=== PATIENT | male | born 1960 | race Caucasian/White ===

== ENCOUNTER 2022-05-13 05:34 | Day surgery (SDC) | payer SELFPAY, OTHER ==
[2022-05-09 08:53] LABS: Hematocrit 42.7 % (40-54); Hemoglobin 14.5 g/dL (13.0-16.5); Mean Corpuscular Hgb 30.7 pg (27.0-32.0); Mean Corpuscular Volume 90.3 fL (80-94); Mean Platelet Vol. 9.7 fl (6.2-12.0); Platelet Count 185 K/mm3 (150-450); RBC Distribution Width CV 12.7 % (11.6-14.6); RBC Distribution Width SD 42.2 fl (35.1-43.9); Red Blood Count 4.73 M/mm3 (4.6-6.2)
[2022-05-09 09:20] LABS: Anion Gap 5 (5-15); BUN 15 mg/dL (7-18); BUN/Creat Ratio 17.1 RATIO (10-20); Calcium,Total 8.6 mg/dL (8.5-10.1); Chloride 104 mmol/L (98-107); Creatinine, Serum 0.88 mg/dL (0.70-1.30); EST Glomerular Filtration Rate 94 mL/min (>60); Est Glom Filt Rate - Afr Amer 114 mL/min (>60); Glucose 101 mg/dL (74-106); Potassium 3.7 mmol/L (3.5-5.1); Sodium Level 138 mmol/L (136-145)
[2022-05-13] VITALS (10 sets, daily range): BP systolic 102–137; BP diastolic 68–95; PULSE 48–79; RESP 14–18; TEMP 35.9–36.4; O2SAT 93–100; BMI 30.7
--- NOTE | 2022-05-13 | GALL_PTH ---
PATIENT: LIGIA URBAN LOC: [facility] [place][id number] AGE/SX: 61/M ROOM: RE05/13/[address]: Dr. Tr Kong MD : 1960 BED: DIS: 05/13/2022 SPEC #: [id number] RECD: 05/13/22 13:28 STATUS: DESTINI REChrista #: [id number] EVA: 05/13/22 00:[address]: Tr Kong DEPT: SURGICAL PATHOLOGY RECD BY: Jd Moses ENTERED: 05/13/22 13:28 SP TYPE: BRYCE SAGASTUME DR: Dr. Yael Rosenthal MD Tissues: Gallbladder, NOS Procedures: Surgery Specimen Level III HEADER OPERATION: Laparoscopic cholecystectomy with IOC PRE-OP DIAGNOSIS: Cholelithiasis with chronic cholecystitis TISSUE SUBMITTED: Gallbladder MICROSCOPIC DIAGNOSIS Gallbladder, cholecystectomy: Chronic cholecystitis. AM:piotr 05/14/2022 MICROSCOPIC DESCRIPTION Slides are reviewed. GROSS DESCRIPTION Received is one container labeled with the patient's name and designated gallbladder. The specimen consists of a gallbladder measuring 8.5 x 3 x 2.5 cm. The external surface is smooth and glistening. Focally, it is granular, hemorrhagic and contains cautery artifact. The lumen of the gallbladder contains yellow-green mucoid bile and no calculi. The mucosa is bile-stained and without any mass lesions. The gallbladder wall averages 0.2 cm in thickness and is free of mass lesions. Network Desktop Support Specialist sections of the gallbladder and the cystic duct at margin of resection are submitted in one cassette. / AM:piotr 05/13/2022 TC:3 CPT: 36662
--- NOTE | 2022-05-13 06:32 | HP.PCM_ITS ---
History and Physical Date of Admission: 05/13/22 Chief Complaint: gallbladder Corporate Director Required: No Is patient in pain?: Yes Pain scale (1-10): 4 Allergies iodine Allergy (Verified 04/02/22 15:03) Rash Medications NK? 08/15/19 [History Confirmed 04/02/22] PFSH Medical History? Gallbladder problem Gallbladder Problem Gout Hemorrhoids Right upper quadrant pain Surgical History? S/P appendectomy S/P arthroscopy of right shoulder S/P right inguinal hernia repair Social History? Smoking Status:? Never smoker alcohol intake:? never HPI HPI HPI: LIGIA URBAN, is a 61 M who presents to the office today for further surgical consultation regarding gallbladder disease.? The patient is referred by and a written copy of my surgical consult recommendations will return to him.? I saw this patient previously August 15, 2019.? At that time he had normal liver function tests and lipase.? He had had sludge on gallbladder ultrasound and classic symptoms consistent with biliary colic.? He had had a stress test which was felt to exclude cardiac etiology.? He did at that point had a 5-year history of postprandial epigastric right upper quadrant pain and right scapular pain.? He had never had a colonoscopy.? I offered him a laparoscopic cholecystectomy with selective cholangiogram.? He did not pursue treatment at that time. The patient states that over the past 2 years he is continue to have postprandial discomfort.? He will disc have discomfort in the interscapular area.? Sometimes into the right chest.? As noted above he did have a cardiac stress test that was negative.? He is able to ride his bicycle and climb up stairs without back pain or jaw pain.? He states that he has tried several flushes and temporary thinks he feels better. ROS General General: No weight change, appetite, fatigue, colon cancer, breast cancer or weakness HEENT HEENT: No difficulty swallowing, eye injury, eye surgery, swollen glands or hoarseness Endo Endocrine: No thyroid disease, diabetes mellitus, thyroid cancer, Hair loss, heat intolerance or cold intolerance Skin Skin: No rash or changing moles Breast Breast: No left breast lump, right breast lump, nipple discharge, breast pain, abnormal mammogram, abnormal US or breast enlargement Musc Musculoskeletal: Yes gout; No back problems, arthritis, rheumatoid arthritis or joint pain Cardio Cardiovascular: No murmur, pacemaker, heart disease, atrial fibrillation, high blood pressure, heart attack, heart stent, palpitations, shortness of breat with exertion or chest pain Psych Psychiatric: No depression, anxiety or hearing voices Resp Respiratory: No shortness of breath, No sleep apnea, No cough, No COPD, No asthma, No emphysema and No wheezing Gastro Gastrointestinal: Yes abdominal pain, No nausea or vomiting, No diarrhea, No constipation, No blood in stool, Yes acid reflux, No hemorrhoids, No ulcers, Yes gallbladder problem and No black,tarry stools [place] Hematologic: No blood thinners, No blood disorders, No bleeding, No anemia and No blood clots Neuro Neurologic: No system reviewed and no additional complaints, except as documented, No as per HPI, No abnormal gait, No abnormal hearing, No abnormal movements, No abnormal speech, No behavioral changes, No burning sensations, No confusion, No convulsions, No disequilibrium, No dizziness, No localized weakness, No frequent falls, No headache(s), No lack of coordination, No loss of vision, No memory loss, No numbness, No other visual disturbances, No radicular pain, No restless legs, No sensory deficit, No syncope, No tingling, No tremor(s), No weakness and No other Exam Const General: cooperative, healthy appearing and comfortable Nutritional Appearance: average body habitus Orientation: alert and awake [facility] Head: normal to inspection Eyes General: appearance normal, both eyes and all related structures Neck Neck: normal visual inspection Chest Chest palpation & inspection: normal inspection of the chest Resp Effort & Inspection: normal respiratory effort Auscultation: clear to auscultation bilaterally Cardio Rate: regular rate Rhythm: regular rhythm GI Palpation: soft and no hepatosplenomegaly Musc Cervical Spine: normal cervical lordosis Skin General: no rashes or lesions noted Neuro General: patient alert and patient awake Psych Appearance: grossly normal Assessment and Plan Assessment and Plan (1) Cholelithiasis with chronic cholecystitis: ?Status:?Chronic ?Plan: I suspect biliary colic and chronic cholecystitis cholelithiasis due to small stones.? I do not recommend at this point a hepatobiliary scan for concern about because of the stones into the common bile duct.? I discussed with him labs Cholecystectomy with cholangiography and we have discussed the technique, benefit, risk and alternatives.? The patient would like to schedule in May.? He is aware that there is no guarantees of success.? I will work very hard at obtaining diagnostic cholangiograms.? He has had an opportunity to ask and have questions answered we will schedule procedure at his discretion. Copy: Dr. Ariadna Kong M.D., F.A.C.S I have re-examined the patient. There are no clinical changes since date of exam. Tr Kong M.D., F.A.C.S.
[2022-05-13] MEDS: Lactated Ringers 1,000 ML 15 ML IV ×3 (06:49→09:52)
--- NOTE | 2022-05-13 07:21 | DCINST_ITS ---
Discharge Instructions Procedure General Surgery Diet Discharge Diet: Light diet - advance as tolerated (if you have questions about your diet instructions, please talk to you doctor.) Activity Discharge Activity: May Not Drive (for 3-5 days or while taking narcotic pain medicine.) May shower in (days): 1 Lifting Restrictions: 10 pounds Dressing / Incision Call your doctor if your incision/area has: Continuous Slow Oozing, Sudden Increased Bleeding, Increased Pain/ Swelling, Increased Redness and Foul Smelling Discharge Call your doctor if you observe: Fever of 101 or Higher Suture Line Care: Avoid Pulling/Pushing and Avoid Pinching/Bending Additional Dressing/Incision Instructions:: Change or remove dressing in 4 days. Leave steri-strips in place for 1 week. Follow Up Care Please Follow Up With: Tr Kong MD When: Call [phone] to make an appointment to be seen in about 10 days. Test Results: Test results from this visit will be discussed in further detail at your follow- up appointment, if applicable. Discharge Plan Admission Attending Provider: Tr Kong Primary Care Provider: Yael Rosenthal Discharge Orders/Prescriptions Prescriptions: No Action NK Other Ambulatory Orders: 12 Lead EKG (Routine) Timeframe: [id number] Location: None Selected Ordered By: Dr. Tr Kong Referrals / Follow Up: Yael Rosenthal MD [Primary Care Provider] - Disposition Disposition (needs filled in before D/C Order can be placed): Home, Self Care
[2022-05-13] MEDS: Cefazolin 2 GM in 0.9% Normal Saline 100 ML IV (07:35)
--- NOTE | 2022-05-13 07:52 | RAD_ITS ---
STUDY: LAPAROSCOPIC CHOLECYSTECTOMY. REASON FOR EXAM: Male, 61 years old. Abdominal pain. FLUOROSCOPY TIME (if supplied): ( 21.7 seconds ) minutes/seconds. A cine loop of 77 images was submitted. TECHNIQUE: An intraoperative cholangiogram was performed by the surgeon. Imaging was submitted. COMPARISON: None. FINDINGS: The intra and extrahepatic biliary ducts are unremarkable. No intraluminal filling defect is seen. Free flow of contrast is seen entering the duodenum. RAD/Cholangiogram/ O R,Initial IMPRESSION: Unremarkable intraoperative cholangiogram. Electronically Signed: Koko Nathan MD at 8:42 EDT ,
[2022-05-13] MEDS: Famotidine 20 MG in 0.9% NS 10 ML 300 MG IV (08:10)
--- NOTE | 2022-05-13 08:21 | PCM.OPRPT ---
Report of Operation Date of Procedure: 05/13/22 Pre-Operative Diagnosis: Chronic cholecystitis cholelithiasis Post-Operative Diagnosis: Same Surgery/Procedure Performed:: Laparoscopic cholecystectomy with cholangiography Description of Surgical Findings:: Timeout and informed consent was obtained. 61-year-old gentleman was taken to the operating room placed upon the table underwent general endotracheal intubation esthesia. Ancef 2 g were given intravenously preoperatively. The patient received 100 mg of Solu-Cortef and IV Benadryl and IV Pepcid and prophylaxis for planned cholangiogram. The abdomen sterilely prepped and draped. 0.25% Marcaine was used as a local anesthetic. Throughout the procedure a total of 30 cc was used. Skin sites were reanesthetized. A vertical infraumbilical incision was created holding sutures of 0 Vicryl placed varies needle inserted saline drop test performed the abdomen was insufflated with CO2 to a pressure of 10 mmHg pressure. 10 mm trocar inserted. 10 mm laparoscope inserted. No evidence of any trocar injuries. Under direct visualization 5 mm ports were placed in the epigastric mid abdomen and right upper quadrant. The gallbladder was distracted. Blunt dissection was instituted at the infundibulum until clearly the cystic duct and cystic artery were identified. Clean view was obtained. The cystic artery was clipped proximally and distally with Hem-o-danielle clips was transected. Hem-o-danielle clip was placed on the cystic duct stump and incision made in the cystic duct and through a 14-gauge Angiocath cholangiogram catheter was inserted. Fluoroscopically controlled cholangiograms were obtained demonstrating normal ductal anatomy and free flow into the small bowel. Cholangiogram catheter was removed and additional Hem-o-danielle clip was placed on the cystic duct stump prior to transecting it. The gallbladder was dissected free from the liver bed using electrocautery. A single Hemoclip was placed to assist with hemostasis. There was no spillage. The gallbladder was placed in a retrieval bag. The right upper quadrant was irrigated and aspirated free of excess fluid. The abdomen was allowed to deflate through an antiviral valve. The gallbladder was exited at the umbilicus. Trochars were removed. The fascia at the umbilicus approximately #0 Vicryl [id number] suture. Skin edges approximated with interrupted 4 Monocryl subdermal stitches. Steri-Strips Telfa OpSite dressings applied. Sponge and instrument and needle counts were reported to the surgeon to be correct. Specimen gallbladder. Drains none. Blood loss minimal. Tr Kong M.D., F.A.C.S. Surgeon: Tr Kong Type of Anesthesia: General and Local Anesthesiologist: Gela Sanchez
[2022-05-13] MEDS: Sugammadex Sodium 200 MG/2 ML VIAL IV (08:23)
== END 2022-05-13 12:15 | disposition home or self-care (01) ==
LOC: SDC 05:37 → AC 05:37
PROVIDERS: PCP Internal Medicine; Referring Provider Surgery; Visit Provider Surgery
PROC: (CPT 47610; principal; 2022-05-13 07:10)
DX: K80.10 Calculus of gallbladder with chronic cholecystitis without obstruction (principal)
CPT/HCPCS: 47563; 00790; 36415; 74300; 76000; 80048; 85027; 88304; 93005; J7120; J2405; J3490